=== PATIENT | male | born 1980 | race Caucasian/White ===

== ENCOUNTER 2018-05-30 09:02 | Outpatient (CLI) | payer OTHER, SELFPAY ==
[2018-05-30 10:16] LABS: HCT 37.6 % (40.0-50.0); Mean Corp. HGB Concentration 34.6 g/dL (32.0-36.0); Mean Corpuscular Hemoglobin 30.3 pg (27.0-33.0); Mean Corpuscular Volume 87.6 fL (80-95); Platelet Count 289 x1000/uL (130-400); RBC 4.29 m/cumm (4.50-6.00); RBC Distribution Width 12.6 % (11.8-14.1)
[2018-05-30 11:02] LABS: ALT 165 U/L (12-78); AST 73 U/L (15-37); Alkaline Phosphatase 103 U/L (46-116); BUN 15 mg/dL (7-18); Bilirubin, Total 0.4 mg/dL (0.2-1.0); CREATININE 0.95 mg/dL (0.70-1.30); Calcium 9.3 mg/dL (8.5-10.1); Chloride 102 mmol/L (98-107); Glucose 96 mg/dL (70-100); Potassium 4.7 mmol/L (3.5-5.1); Sodium 140 mmol/L (136-145); Total Protein 7.5 g/dL (6.4-8.2)
[2018-05-31 14:19] LABS: HIV-1/2 Ag & Ab Screen Negative (NEGAT)
[2018-05-31 14:26] LABS: Hepatitis C Ab w Rflx HCV PCR Reactive (NEGAT)
== END 2018-05-30 09:22 ==
PROVIDERS: Visit Provider Nurse Practitioner Adult Health
DX: Z11.4 Encounter for screening for human immunodeficiency virus [HIV] (principal); Z11.59 Encounter for screening for other viral diseases
CPT/HCPCS: 36415; 80053; 85027; 86803; 87389; 87522